=== PATIENT | female | born 1995 | race Caucasian/White ===

== ENCOUNTER 2021-04-10 19:50 | Inpatient (IN) | payer SELFPAY ==
[~2021-04-10] VITALS: Ht 152.4 cm; Wt 63.5 kg
[2021-04-10] MEDS ORDERED: PREN-182 PO (21:41)
[2021-04-10] MEDS ORDERED: MISOPROSTOL 100MCG TABLET VG SCH (23:00)
[2021-04-10] MEDS ORDERED: BUTORPHANOL TARTRATE 2 MG/ML VIAL IV PRN (23:00)
[2021-04-10] MEDS ORDERED: NALOXONE HCL 0.4 MG/ML 1ML VIAL IM PRN (23:00)
[2021-04-10] MEDS ORDERED: LIDOCAINE HCL 1% 20ML VIAL (Pyxis) INJ INFIL SCH (23:00)
[2021-04-10] MEDS: LACTATED RINGERS 1,000 ML IV SCH ×2 (23:32→23:50)
[2021-04-10 23:52] LABS: BASOPHILS % 0.3 % (0.0-2.0); EOSINOPHILS % 0.9 % (0.0-5.0); HEMATOCRIT. 32.8 % (36.0-48.0); HEMOGLOBIN. 10.7 g/dL (12.0-16.0); LYMPHOCYTES % 22.9 % (20.0-50.0); MEAN CORPUSCULAR HEMOGLOBIN 24.6 pg (28.0-32.0); MEAN CORPUSCULAR VOLUME 75.6 fL (81.0-99.0); MEAN PLATELET VOLUME 8.1 fl (7.4-10.4); MONOCYTES % 6.6 % (2.0-8.0); NEUTROPHILS % 69.3 % (40.0-76.0); PLATELET 184 x1000/uL (130-400); RED BLOOD CELL COUNT 4.34 mill/uL (4.2-5.4); RED CELL DISTRIBUTION WIDTH 16.3 % (11.6-14.6)
[2021-04-10 23:52] LABS: CLARITY URINE CLEAR (CLEAR); COLOR URINE YELLOW (YELLOW); KETONES URINE 1+ (NEGATIVE); LEUKOCYTE ESTERASE URINE 2+ (NEGATIVE); NITRITE URINE NEGATIVE (NEGATIVE); OCCULT BLOOD URINE NEGATIVE (NEGATIVE); PH URINE 5.5 (4.5-8.0); PROTEIN URINE NEGATIVE (NEGATIVE); SPECIFIC GRAVITY URINE 1.013 (1.005-1.030); UROBILINOGEN URINE 0.2 E.U./dL (0.2-1.0)
[2021-04-11] MEDS ORDERED: PENICILLIN G POTASSIUM 5 MMU in DEXT 5% WATER 100 ML IV SCH
[2021-04-11 00:03] LABS: INR 0.9; PROTHROMBIN TIME 9.9 sec (9.6-11.0)
[2021-04-11] MEDS: PENICILLIN G POTASSIUM 2.5 MMU in DEXTROSE 5% WATER 50 ML IV SCH ×2 (00:10→00:12)
[2021-04-11 00:29] LABS: *AMPHETAMINES SCREEN URINE NEGATIVE (NEGATIVE); *BARBITURATES SCREEN URINE NEGATIVE (NEGATIVE); *BENZODIAZEPINES SCREEN URINE NEGATIVE (NEGATIVE); *COCAINE SCREEN URINE NEGATIVE (NEGATIVE); METHADONE URINE SCREEN NEGATIVE (NEGATIVE); OPIATES URINE SCREEN NEGATIVE (NEGATIVE)
[2021-04-11 00:31] LABS: CANNABINOID URINE SCREEN NEGATIVE (NEGATIVE); PHENCYCLIDINE URINE SCREEN NEGATIVE (NEGATIVE)
[2021-04-11] MEDS ORDERED: DEXT 5%/LR + PITOCIN 20UNITS/L 1,000 ML IV SCH (03:15)
[2021-04-11] MEDS ORDERED: DIPHENHYDRAMINE 25MG CAPSULE PO PRN (03:45)
[2021-04-11] MEDS ORDERED: GLYCERIN/WITCH HAZEL LEAF MEDICATED PAD TOP PRN (03:45)
[2021-04-11] MEDS ORDERED: BISACODYL 10MG SUPP PR PRN (03:45)
[2021-04-11] MEDS ORDERED: LANOLIN OINT 7GM TUBE TOP PRN (03:45)
[2021-04-11] MEDS ORDERED: HEMORRHOIDAL SUPP PR PRN (03:45)
[2021-04-11] MEDS ORDERED: IBUPROFEN 400MG TABLET PO PRN (03:45)
[2021-04-11] MEDS ORDERED: ACETAMINOPHEN WITH CODEINE 300/30MG TABLET PO PRN (03:45)
[2021-04-11] MEDS: DEXT 5%/LR + PITOCIN 20UNITS/L 1,000 ML IV SCH ×2 (04:01→04:25)
[2021-04-11] MEDS: IBUPROFEN 800MG TABLET PO PRN ×2 (04:58→11:03)
[2021-04-11 06:00] VITALS: BP 99/56
[2021-04-11 08:30] VITALS: BP 95/48
[2021-04-11] MEDS: NITROFURANTOIN 100MG M/M CAPSULE PO SCH ×2 (08:51→22:06)
[2021-04-11] MEDS: PRENATAL VIT/FE FUMARATE/FA TABLET PO SCH (08:51)
[2021-04-11] MEDS ORDERED: OXYTOCIN 10 UNITS/ML 1ML ONE (09:33)
[2021-04-11 15:16] LABS: HEPATITIS B SURFACE ANTIGEN NEGATIVE
[2021-04-11 16:15] VITALS: BP 98/48
[2021-04-11] MEDS ORDERED: TETANUS, DIPHTHERIA, PERTUSSIS VAC/PF 0.5ML (>7YR OLD) IM ONE (20:00)
[2021-04-11 20:15] VITALS: BP 107/62
[2021-04-11] MEDS ORDERED: DOCUSATE SODIUM 100MG CAPSULE PO SCH (21:00)
[2021-04-12] MEDS: IBUPROFEN 800MG TABLET PO PRN ×2 (01:36→13:26)
[2021-04-12 04:40] VITALS: BP 95/68
[2021-04-12 06:40] LABS: BASOPHILS % 0.5 % (0.0-2.0); EOSINOPHILS % 3.5 % (0.0-5.0); HEMATOCRIT. 35.6 % (36.0-48.0); HEMOGLOBIN. 11.6 g/dL (12.0-16.0); LYMPHOCYTES % 27.5 % (20.0-50.0); MEAN CORPUSCULAR HEMOGLOBIN 24.8 pg (28.0-32.0); MEAN CORPUSCULAR VOLUME 76.1 fL (81.0-99.0); MEAN PLATELET VOLUME 8.1 fl (7.4-10.4); MONOCYTES % 6.9 % (2.0-8.0); NEUTROPHILS % 61.6 % (40.0-76.0); PLATELET 167 x1000/uL (130-400); RED BLOOD CELL COUNT 4.68 mill/uL (4.2-5.4); RED CELL DISTRIBUTION WIDTH 16.4 % (11.6-14.6)
[2021-04-12] MEDS ORDERED: FERROUS SULFATE 325MG TABLET PO SCH (07:30)
[2021-04-12 08:30] VITALS: BP 99/61
[2021-04-12] MEDS: PRENATAL VIT/FE FUMARATE/FA TABLET PO SCH (13:26)
[2021-04-12] MEDS: NITROFURANTOIN 100MG M/M CAPSULE PO SCH (13:27)
== END 2021-04-12 17:00 | disposition home or self-care (01) | DRG 560 ==
LOC: 8 EST LDRP 19:50 → OBSVTOIN 19:50 → 8EST 04-11 05:55
PROVIDERS: ADMIT Obstetrics & Gynecology; ATTEND Obstetrics & Gynecology
PROC: 10E0XZZ Delivery of Products of Conception, External Approach (ICD-10-PCS; principal; 2021-04-10)
PROC: 3E0R3BZ Introduction of Anesthetic Agent into Spinal Canal, Percutaneous Approach (ICD-10-PCS; 2021-04-10)
PROC: 00HU33Z Insertion of Infusion Device into Spinal Canal, Percutaneous Approach (ICD-10-PCS; 2021-04-10)
DX: O60.14X0 Preterm labor third trimester with preterm delivery third trimester, not applicable or unspecified (principal); O23.43 Unspecified infection of urinary tract in pregnancy, third trimester; O99.02 Anemia complicating childbirth; Z37.0 Single live birth; Z3A.36 36 weeks gestation of pregnancy
CPT/HCPCS: 36415; 76805; 76818; 80305; 81003; 85025; 86592; 86703; 86762; 86850; 86900; 87340; 90715; 99281; G0378; J2540; J2590; J7060; J7120